=== PATIENT | female | born 1965 | race Caucasian/White ===

== ENCOUNTER 2024-11-11 12:41 | Inpatient (IN) | payer OTHER ==
--- OUTSIDE RECORDS SUMMARY | 2024-11-11 12:44 | XMS REPORT | Continuity of Care Document ---
Author Name Unknown Address [address] [place]. [address] [place] [address] [facility] Address [address] [place] [place] [address] Care Team Providers Care Sack Sorter Name Role Phone PERRYBHARGAV Nichole Attending Clinician Unavailable LAB90 Attending Clinician Unavailable SARAH ROGERS Attending Clinician Unavailable MYRANDA CURTIS Attending Clinician SHIRA Steve Attending Clinician Unavailable Myranda Curtis MD Attending Clinician [phone] Payers Payer Name Policy Type Policy Number Effective Date Expirati on Date Source [facility] 3 [id number] 2022 00:00:00 Problems Condition Name Condition Details Condition Category Status Onset Date Resolution Date Last Treatment Date Treating Clinician Comments Source Hot flashes due to menopause - Controlled Hot flashes due to menopause - Controlled Disease Active 05-02 00:00: 00 Brissa Wilson - Externa l Depression with anxiety - Not Controlled Depression with anxiety - Not Controlled Disease Active 05-02 00:00: 00 Brissa Wilson - Externa l No known active problems No known active problems Disease Brissa Wilson - Externa l Social History Social Habit Start Date Stop Date Quantity Comments Source Gender identity Carmelina Wilson - External Sexual orientation K cuco Wilson - External ASSERTION Not Brissa Wilson - External Cigarettes smoked current (pack per day) - Reported 2024-06-09 00:00:00 2024-06-09 00:00:00 Brissa Wilson - External Cigarette pack-years 2024-06-09 00:00:00 2024-06-09 00:00:00 Brissa Gauthierjennieron - External Alcoholic beverage intake 2024-06-09 00:00:00 2024-06-09 00:00:00 Lifetime non-drinker (finding) Brissa Gauthierjennieron - External History of Social function 2024-05-02 00:00:00 2024-05-02 00:00:00 Brissa Gauthiredaisy - External Sex 2022-02-06 12:32:14 2022-02-06 12:32:14 Female (finding) Brissa Gauthierdaisy - External History of tobacco use 2010-01-28 00:00:00 2020-12-31 00:00:00 Cigarette Smoker Brissa Gauthierjennieron - External Sex assigned at 1965 00:00:00 1965 00:00:00 Brissa Gauthierdaisy - External Smoking Status Start Date Stop Date Source Ex-smoker 2024-06-09 00:00:00 2024-06-09 00:00:00 Brissa Sejennieron - External Occasional tobacco smoker 2022-02-10 00:00:00 Brissa Gauthierjennieron - External Medications Ordered Medication Name Filled Medication Name Start Date Stop Date Current Medication? Ordering Clinician Indication Dosage Frequency Signature (SIG) Comments Components Source busPIRone HCl 10 MG oral Tablet 2023-08 00:00: 00 Yes [id number] 10mg Q.[id number] [id number] 3D Take 1 tablet (10 mg total) by mouth 3 times daily. Brissa Hendrix l Eszopiclone 1 MG oral Tablet 2023-08 00:00: 00 Yes [id number] Take 1-2 tab nightly as needed for sleep. Brissa Schmidta l Propranolol HCl 10 MG oral Tablet 2023-08 00:00: 00 Yes [id number] 10mg Q.[id number] [id number] 3D Take 1 tablet (10 mg total) by mouth 3 times daily as needed (anxiety). Brissa Schmidta l Eszopiclone 1 MG oral Tablet 2023-08 00:00: 00 06-09 00:00 :00 No [id number] 1mg QD Take 1 tablet (1 mg total) by mouth nightly as needed (insomnia) . Brissa nichole busPIRone HCl 10 MG oral Tablet 2023-08 0- 00:00: 00 06-09 00:00 :00 No [id number] 10mg Q.5D TAKE 1 TABLET BY MOUTH 2 TIMES DAILY Brissa nichole Eszopiclone 1 MG oral Tablet 05-02 00:00: 00 Yes [id number] 1mg QD Take 1 tablet (1 mg total) by mouth nightly as needed (insomnia) . Brissa nichole busPIRone HCl 10 MG oral Tablet 05-02 00:00: 00 Yes [id number] 10mg Q.5D Take 1 tablet (10 mg total) by mouth 2 times daily. Brissa nichole Clonidine HCl (CATAPRES) 0.1 MG oral Tablet 05-02 00:00: 00 Yes [id number] .1mg Q.5D Take 1 tablet (0.1 mg total) by mouth 2 times daily. Brissa nichole Escitalopra m Oxalate 20 MG oral Tablet 05-02 00:00: 00 Yes [id number] 20mg QD Take 1 tablet (20 mg total) by mouth daily. Brissa nichole Escitalopra m Oxalate 20 MG oral Tablet 04-24 00:00: 00 05-02 00:00 :00 No [id number] 20mg QD TAKE 1 TABLET BY MOUTH EVERY DAY Brissa nichole Clonidine HCl (CATAPRES) 0.1 MG oral Tablet 2022-08 1-14 00:00: 00 05-02 00:00 :00 No [id number] .1mg Q.5D Take 1 tablet (0.1 mg total) by mouth 2 times daily. Brissa nichole Benzonatate 200 MG oral Capsule 18 00:00: 00 05-02 00:00 :00 No [id number] 200mg Q.27649909 [id number] 3D Take 1 capsule (200 mg total) by mouth 3 times daily as needed for cough Brissa nichole Albuterol HFA 108 (90 Base) MCG/ACT IN AERS 03-09 00:00: 00 05-02 00:00 :00 No [id number] 2{puff} Q.25D Inhale 2 puffs into the lungs every 6 hours as needed for wheezing or shortness of breath Brissa nichole PAXLOVID STANDARD (30) (300/100) Therapy Pack 03-09 00:00: 00 03-15 04:59 :00 No [id number] Take two 150 mg nirmatrelv ir (pink) tablets with one 100 mg ritonavir (white) tablet by mouth two times daily for 5 days Brissa nichole Escitalopra m Oxalate 20 MG oral Tablet 01-11 00:00: 00 Yes [id number] 20mg Take 1 tablet (20 mg total) by mouth daily Brissa nichole Trazodone HCl 50 MG oral Tablet 10-07 00:00: 00 Yes [id number] TAKE 1-2 AT NIGHT NEEDED FOR SLEEP Brissa nichole methylPREDN ISolone 4 MG oral Tablet Therapy Pack 2021-08 00:00: 00 Yes [id number] 1{alex} Take 1 alex by mouth See Admin Instructio ns Use as directed Brissa nichole Meloxicam 7.5 MG oral Tablet 2021-08 00:00: 00 Yes [id number] 7.5mg Take 1 tablet (7.5 mg total) by mouth daily Brissa nichole Amoxicillin -Pot Clavulanate 875-125 MG oral Tablet 2021-08 00:00: 00 Yes [id number] 1{tbl} Take 1 tablet by mouth 2 times daily Brissa nichole Clonidine HCl 0.1 MG oral Tablet 2021-08 00:00: 00 Yes [id number] .1mg Take 1 tablet (0.1 mg total) by mouth 2 times daily Brissa nichole Cyclobenzap rine HCl 10 MG oral Tablet 2021-08 00:00: 00 03-09 00:00 :00 No [id number] 10mg Q.[id number] 3D Take 1 tablet (10 mg total) by mouth every 8 hours as needed for muscle spasms Brissa nichole Escitalopra m Oxalate 20 MG oral Tablet 04-22 00:00: 00 Yes [id number] 20mg Take 1 tablet (20 mg total) by mouth daily Brissa nichole Trazodone HCl 50 MG oral Tablet 04-17 00:00: 00 Yes [id number] TAKE 1 TABLET BY MOUTH NIGHTLY NEEDED FOR SLEEP Brissa nichole Clonidine HCl 0.1 MG oral Tablet 02-24 00:00: 00 08-03 00:00 :00 No [id number] .1mg Take 1 tablet (0.1 mg total) by mouth 2 times daily Brissa nichole Vital Signs Vital Name Observation Time Observation Value Comments S ource Diastolic blood pressure 2024-06-09 13:52:00 78 mm[Hg] Brissa Martinezo ld - External Systolic blood pressure 2024-06-09 13:52:00 130 mm[Hg] Brissajohnathon Martinezo ld - External Heart rate 2024-06-09 13:44:00 72 /min Kelse y Seybron - External Body temperature 2024-06-09 13:44:00 36.61 Gladys Brissa Gauthierdaisy - External Respiratory rate 2024-06-09 13:44:00 15 /min Brissa Sedaisy - External Body height 2024-06-09 13:44:00 162.6 cm Carmelina anant Gauthierybron - External Body weight 2024-06-09 13:44:00 78.926 kg Carmelina anant Gauthierybold - External BMI 2024-06-09 13:44:00 29.87 kg/m2 Carmelina anant Seybold - External Systolic blood pressure 2024-05-02 14:04:00 138 mm[Hg] Brissajohnathon Martinezo ld - External Diastolic blood pressure 2024-05-02 14:04:00 78 mm[Hg] Brissajohnathon Martinezo ld - External Heart rate 2024-05-02 14:04:00 86 /min Kelse y Seybold - External Body temperature 2024-05-02 14:04:00 36.06 Gladys Brissa Seybold - External Respiratory rate 2024-05-02 14:04:00 14 /min Brissa Seybold - External Body height 2024-05-02 14:04:00 162.6 cm Carmelina ey Seybold - External Body weight 2024-05-02 14:04:00 80.74 kg Carmelina ey Seybold - External BMI 2024-05-02 14:04:00 30.55 kg/m2 Carmelina ey Seybold - External Systolic blood pressure 2022-10-08 21:05:00 130 mm[Hg] Brissa Seybo ld - External Diastolic blood pressure 2022-10-08 21:05:00 64 mm[Hg] Brissa Seybo ld - External Heart rate 2022-10-08 21:05:00 78 /min Kelse y Seybold - External Body temperature 2022-10-08 21:05:00 37.28 Gladys Brissa Seybold - External Respiratory rate 2022-10-08 21:05:00 15 /min Brissa Seybold - External Body height 2022-10-08 21:05:00 162.6 cm Carmelina ey Seybold - External Body weight 2022-10-08 21:05:00 96.163 kg Carmelina ey Seybold - External BMI 2022-10-08 21:05:00 36.39 kg/m2 Carmelina ey Seybold - External Systolic blood pressure 2022-08-03 15:16:00 125 mm[Hg] Brissa Seybo ld - External Diastolic blood pressure 2022-08-03 15:16:00 78 mm[Hg] Brissa Seybo ld - External Heart rate 2022-08-03 15:16:00 71 /min Kelse y Seybold - External Body temperature 2022-08-03 15:16:00 36.56 Gladys Brissa Seybold - External Respiratory rate 2022-08-03 15:16:00 14 /min Brissa Seybold - External Body height 2022-08-03 15:16:00 162.6 cm Carmelina ey Seybold - External Body weight 2022-08-03 15:16:00 90.357 kg Carmelina ey Seybold - External BMI 2022-08-03 15:16:00 34.19 kg/m2 Carmelina ny Seybold - External Oxygen saturation in Arterial blood by Pulse oximetry 2022-08-03 15:16:00 95 /min Brissa Godoy ld - External Encounters Start Date/Time End Date/Time Encounter Type Admission Type Attending [facility] Care Department Encounter ID Source 2024-08-28 00:00:00 2024-08-28 00:00:00 Outpatient NEFTALY BHARGAV BRADLEY [id number] Brissa jennieron 2024-07-17 08:30:00 2024-07-17 08:30:00 Outpatient NEFTALY BHARGAV BRADLEY [id number] Brissa daisy 2024-07-01 00:00:00 2024-07-01 00:00:00 Outpatient BHARGAV HIGGINBOTHAM [id number] Brissa Steve 2024-06-09 09:45:00 2024-06-09 09:45:00 Outpatient LAB90 BRISSA BRADLEY [id number] Brissa Steve 2024-06-09 09:00:00 2024-06-09 09:00:00 Outpatient NEFTALY BHARGAV BRADLEY [id number] Brissa Steve 2024-06-09 00:00:00 2024-06-09 00:00:00 Outpatient NEFTALY BHARGAV BRADLEY [id number] Brissa Steve 2024-06-07 00:00:00 2024-06-07 00:00:00 Outpatient BHARGAV HIGGINBOTHAM [id number] Brissa Steve 2024-05-24 00:00:00 2024-05-24 00:00:00 Outpatient BHARGAV HIGGINBOTHAM [id number] Brissa jennieron 2024-05-02 09:00:00 2024-05-02 09:00:00 Outpatient BHARGAV HIGGINBOTHAM [id number] Brissa ybron 2024-05-02 00:00:00 2024-05-02 00:00:00 Outpatient BHARGAV HIGGINBOTHAM [id number] Brissa jennieron 2024-04-20 00:00:2024-04-20 00:00:00 Outpatient HUNDL BHARGAV [facility] [id number] [facility] 2024-03-27 00:00:00 2024-03-27 00:00:00 Outpatient HUNDL BHARGAV [facility]SA [facility] [id number] [facility] 2023-10-29 00:00:00 2023-10-29 00:00:00 Outpatient HUNDL [facility]AV [facility] [id number] [facility] 2023-10-06 00:00:00 2023-10-06 00:00:00 Outpatient HUNDL [facility]AV [facility] [id number] [facility] 2023-10-05 00:00:00 2023-10-05 00:00:00 Outpatient PREZAS, SARAH [facility] [id number] [facility] 2023-07-06 00:00:00 2023-07-06 00:00:00 [id number]23-[facility]-09 10:00:00 2023-03-09 10:00:00 Outpatient SHIRA BARAJAS [id number] [facility] 2023-02-22 00:00:00 2023-02-22 00:00:00 [facility] CURT[facility] [id number] [facility] 2023-01-11 00:00:00 2023-01-11 00:00:00 Outpatient MYRANDA CURTIS [id number] [facility] 2023-01-11 00:00:00 2023-01-11 00:00:00 Outpatient PREZASSARAH [id number] Brissa Seybold 2023-01-11 00:00:00 2023-01-11 00:00:00 Outpatient PRESARAH MEYER [id number] Brissa Seybold 2023-01-07 00:00:00 2023-01-07 00:00:00 Outpatient MY[facility]ANDA CURTIS [id number] [facility] 2023-01-07 00:00:00 2023-01-07 00:00:00 Outpatient MYRANDA CURTIS BRISSA BRADLEY [id number] Br[facility] 2022-12-18 00:00:00 2022-12-18 00:00:00 Outpatient MYRANDA CURTIS BRISSA BRADLEY [id number] Brissa [facility] 2022-11-19 00:00:00 2022-11-19 00:00:00 Outpatient EVER MYRANDA BRADLEY [id number] Brissa [facility] 2022-10-08 16:15:00 2022-10-08 16:15:00 Outpatient VICTOR MANUELEmily BRISSA BRADLEY [id number] Brissa [facility] 2022-10-08 15:30:00 2022-10-08 15:30:00 [id number] [facility]:00 2022-10-08 00:00:00 Outpatient BHARGAV HIGGINBOTHAM [id number] Brissa [facility] 2022-10-07 00:00:00 2022-10-07 00:00:00 Outpatient EVER MYRANDA BRADLEY [id number] Brissa [facility] 2022-10-05 00:00:00 2022-10-05 00:00:00 Outpatient NEFTALY BHARGAV BRADLEY [id number] [facility] 2022-09-17 00:00:00 2022-09-17 00:00:00 Outpatient MYRANDA CURTIS [id number] Br[facility] 2022-08-28 00:00:00 2022-08-28 00:00:00 Outpatient SARAH ROGERS [id number] Brissa [facility] 2022-08-27 00:00:00 2022-08-27 00:00:00 Outpatient MYRANDA CURTIS [id number] Brissa [facility] 2022-08-03 09:15:00 2022-08-03 09:15:00 Outpatient MYRANDA CURTIS [id number] Brissa [facility] 2022-04-21 08:30:00 2022-04-21 08:45:00 Office Visit Myranda Curtis [place] [id number] Brissa Wilson 2022-03-24 08:45:00 2022-03-24 09:00:00 Office Visit Myranda Curtis [id number] Brissa Wilson 2022-03-12 14:45:00 2022-03-12 14:45:00 Outpatient LAB90 BRISSA BRISSA [id number] Brissa Wilson 2022-02-24 08:45:00 2022-02-24 09:00:00 Office Visit Myranda Curtis [place] [id number] Brissa Wilson 2022-02-16 00:00:00 2022-02-16 00:00:00 Outpatient MYRANDA CURTIS BRISSA [id number] Brissa Wlison 2022-02-11 00:00:00 2022-02-11 00:00:00 Outpatient MYRANDA CURTIS BRISSA [id number] Brissa Wilson 2022-02-10 11:45:00 2022-02-10 11:45:00 Outpatient LAB90 BRISSA BRADLEY [id number] Brissa Wilson 2022-02-10 11:00:00 2022-02-10 11:30:00 Office Visit Myranda Curtis [place] [id number] Brissa Seron Notes Date/Time Note Provider Source 2024-06-09 08:47:48 Chief Complaint Patient presents with Physical Patient is fasting. Follow-up Follow up on anxiety/depression Nithya Pretty MA II [facility] 2024-05-02 09:08:41 Chief Complaint Patient presents with REFILLS-NURSE/MD Refill on Clonidine Fatigue Would like to discuss getting something to help her sleep. She states that her anxiety has increased and has taken Trazodone and it does not help. Has had some family issues as well. Nithya Pretty MA II [facility]
--- NOTE | 2024-11-11 13:42 | RAD REPORT ---
Procedure: Chest Single View HISTORY: Cough COMPARISON: none FINDINGS: 8 cm opacity right lung with elevation right hemidiaphragm. Left lung appears grossly clear. No significant pleural effusion noted. The heart is normal size. IMPRESSION: Right lung opacity may represent pneumonia or mass.
[2024-11-11 13:55] LABS: Absolute Lymphocytes (CBC) 0.7 K/uL (0.7-4.9); Absolute Monocytes 0.7 K/uL (0.1-1.3); Basophils % 0.8 % (0-1.3); Eosinophils % 0.1 % (0-4.4); Hematocrit 41.8 % (36.0-45.0); Hemoglobin 14.4 g/dL (12.0-15.0); Lymphocytes % 10.9 % (15.3-44.8); MCHC 34.5 g/dL (32.0-36.0); MPV 8.8 fL (7.6-11.3); Monocytes % 10.2 % (3.3-12.3); Nucleated Red Blood Cells % 0.1 % (0-0); Platelets 218 thou/uL (152-406); RBC Red Blood Cell Count 4.97 M/uL (3.86-4.86); Red Cell Distribution Width 14.7 % (12.1-15.2)
[2024-11-11] MEDS ORDERED: IPRATROPIUM BROM 0.5MG/2.5ML ONE (13:55)
[2024-11-11] MEDS ORDERED: ALBUTEROL 2.5 MG/3 ML NEB SOL ONE (13:55)
[2024-11-11 14:14] LABS: Comment N; Influenza A Ag Positive; Influenza B Ag Negative; SARS-CoV-2 Antigen Rapid Res Negative (Negative)
[2024-11-11 14:23] LABS: Albumin 3.4 g/dL (3.4-5.0); Albumin/Globulin Ratio 0.8 (1.1-1.8); Anion Gap 11.2 mEq/L (5.0-15.0); Bilirubin Direct 0.2 mg/dL (0-0.2); Bilirubin Indirect, Calculated 0.4 mg/dL (0.2-0.8); Bilirubin Total 0.6 mg/dL (0.2-1.0); Globulin 4.2 g/dL (2.3-3.5); Magnesium 1.9 mg/dL (1.6-2.4); Potassium 3.2 mEq/L (3.5-5.1); Protein, Total 7.6 g/dL (6.4-8.2); Troponin High Sensitivity 18.3 pg/mL (<58.9)
--- NOTE | 2024-11-11 14:44 | RAD REPORT ---
EXAM:Thorax Wo Con CLINICAL INDICATION: Shortness of breath TECHNIQUE: CT chest performed.. Axial, sagittal and coronal reconstructions were obtained. One or mor e of the following dose reduction techniques were used: Automated exposure control, adjustment of the mA and/or kV according to the patient size, and/or iterative reconstruction. Unless otherwise specified, incidental findings do not require dedicated imaging follow-up. [id number]. COMPARISON: November 11, 2024 chest x-ray FINDINGS: 8 cm right upper lobe mass extends to an infiltrates the mediastinum. There are markedly enlarged med iastinal lymph nodes. Right hilar lymphadenopathy is present. The mass likely disrupts the right phrenic nerve. Elevation of the right hemidiaphragm is present. Additional right lung opacities likely post obstructive pneumonitis. The left lung is clear. Minimal right pleural effusion. Minimal ascites. Cholelithiasis. 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 Mediastinal and right hilar lymphadenopathy The mass would be amenable to bronchoscopy with tissue sampling.
--- NOTE | 2024-11-11 15:21 | ER ---
Nurse's Notes [facility] Name: Myranda Abarca Age: 59 yrs Sex: Female : 1965 Arrival Date: 11/11/2024 Time: 12:41 Bed 20 Private MD: Diagnosis: Influenza, hypoxia, pneumonia, new pulmonary mass Presentation: 11/11 12:54 Chief complaint: Patient states: SOB, cough, decreased appetite, and fatigue since aa5 Wednesday. 12:54 Coronavirus screen: cough unrelated to allergies. Ebola Screen: Patient denies travel aa5 to an Ebola-affected area in the 21 days before illness onset. Initial Sepsis Screen: Does the patient meet any 2 criteria? RR > 20 per min. HR > 90 bpm. Yes Does the patient have a suspected source of infection? No. Patient's initial sepsis screen is negative. Risk Assessment: Do you want to hurt yourself or someone else? Patient reports no desire to harm self or others. Onset of symptoms was October 2024. 12:54 Acuity: HUNG 3 aa5 12:54 Method Of Arrival: Ambulatory aa5 Triage Assessment: 13:54 General: Appears in no apparent distress. Behavior is calm, cooperative. Respiratory: kj2 Reports shortness of breath at rest Onset: The symptoms/episode began/occurred since Wednesday, the patient has moderate shortness of breath. Historical: - Allergies: 12:54 PENICILLINS; aa5 - Home Meds: 12:54 clonidine HCl 0.1 mg Oral tablet 2 times per day [Active]; escitalopram oxalate 20 mg aa5 oral tablet daily [Active]; - PMHx: 12:54 Depressive disorder; aa5 - PSHx: 12:54 None; aa5 - Immunization history:: Adult Immunizations unknown. - Infectious Disease History:: Denies. - Social history:: Smoking status: Reported history of juuling and/or vaping. Screenin:53 [facility] ED Fall Risk Assessment (Adult) History of falling in the last 3 months, kj2 including since admission No falls in past 3 months (0 pts) Confusion or Disorientation No (0 pts) Intoxicated or Sedated No (0 pts) Impaired Gait No (0 pts) Mobility Assist Device Used No (0 pt) Altered Elimination No (0 pt) Score/Fall Risk Level 0 - 2 = Low Risk Maintained a safe environment, Hourly rounding (assess needs \T\ fall precautionary measures) done. Abuse screen: Denies threats or abuse. Denies injuries from another. Nutritional screening: No deficits noted. Tuberculosis screening: No symptoms or risk factors identified. Assessment: 13:52 General: Appears in no apparent distress. Behavior is calm, cooperative. Pain: Denies kj2 pain. Neuro: Level of Consciousness is awake, alert, obeys commands, Oriented to person, place, time, situation. Cardiovascular: Patient's skin is warm and dry. Respiratory: Airway is patent Respiratory effort is unlabored, Breath sounds with rales bilaterally. GI: No signs and/or symptoms were reported involving the gastrointestinal system. : No signs and/or symptoms were reported regarding the genitourinary system. 15:00 Reassessment: Patient appears in no apparent distress at this time. Patient and/or kj2 family updated on plan of care and expected duration. Pain level reassessed. Patient is alert, oriented x 3, equal unlabored respirations, skin warm/dry/pink. 15:19 Reassessment: patient placed on O2 3 liters, O2 sats raised to 95%. kj2 18:01 Cardiovascular: Rhythm is sinus rhythm. kj2 Vital Signs: 12:54 BP 117 / 60; Pulse 93; Resp 24 S; Temp 99.2(O); Pulse Ox 95% on R/A; Weight 74.39 kg aa5 (R); Height 5 ft. 4 in. (R); 15:00 BP 120 / 103; Pulse 98; Resp 20; Pulse Ox 91% on R/A; kj2 16:00 BP 121 / 92; Pulse 92; Resp 20; Pulse Ox 96% 3 lpm ; kj2 17:50 BP 116 / 65; Pulse 82; Resp 20; Temp 98; Pulse Ox 96% 3 lpm ; kj2 12:54 Body Mass Index 28.15 (74.39 kg, 162.56 cm) aa5 ED Course: 12:44 Patient arrived in ED. sj2 12:50 Nasima Plaza MD is Attending Physician. sp3 12:54 Arm band placed on. aa5 12:57 Triage completed. aa5 13:24 XRAY Chest (1 view) In Process Unspecified. EDMS 13:29 Kenya Crandall, VIJAY is Primary Nurse. kj2 13:45 Inserted saline lock: 20 gauge in left antecubital area, using aseptic technique. Blood kj2 collected. Flushed with 10 mL NS. 13:52 Group A Streptococcus Rapid Sent. kj2 13:52 COVID-19 Ag + Flu A+B Ag Sent. kj2 13:54 Patient has correct armband on for positive identification. Bed in low position. Call kj2 light in reach. Adult w/ patient. Provided Education on: call light. 13:56 No provider procedures requiring assistance completed. kj2 14:32 CT Chest Wo Con In Process Unspecified. EDMS 15:21 Uli To MD is Hospitalizing Provider. sp3 19:20 Patient admitted, IV remains in place. kj2 Administered Medications: 14:04 Drug: DuoNeb Nebulize (3:1) (2.5 mg - 0.5 mg) 3 ml Nebulizer once Route: Nebulizer; kj2 15:23 Follow up: Response: No adverse reaction kj2 15:36 Drug: Cefepime IVPB 1 grams IVPB at 200 ml/hr once over 30 mins; (mix in NS 100 mL) kj2 Route: IVPB; Rate: 200 ml/hr; Infused Over: 30 mins; Site: left antecubital; 17:58 Follow up: IV Status: Completed infusion; IV Intake: 100ml kj2 Medication: 13:56 VIS not applicable for this client. kj2 Intake: 17:58 IV: 100ml; Total: 100ml. kj2 Outcome: 15:21 Decision to Hospitalize by Provider. sp3 19:19 Admitted to Med/surg accompanied by tech, via wheelchair, room 223, kj2 19:19 Condition: stable 19:19 Instructed on the need for admit, 19:21 Patient left the ED. kj2 Signatures: Dispatcher [employer] EDMS Romelia Joseph RN RN aa5 Nasima Plaza MD MD sp3 Kenya Crandall RN RN kj2 Sofia Hargrove sj2 Corrections: (The following items were deleted from the chart) 15:19 15:15 BP 120 / 103; Pulse 98bpm; Resp 20bpm; Pulse Ox 91% RA; kj2 kj2
--- NOTE | 2024-11-11 15:22 | EDPHYS ---
Physician Documentation [facility] Name: Myranda Abarca Age: 59 yrs Sex: Female : 1965 Arrival Date: 11/11/2024 Time: 12:41 Bed 20 Private MD: ED Physician Nasima Plaza HPI: 11/11 13:05 This 59 yrs old Female presents to ER via Ambulatory with complaints of Breathing sp3 Difficulty. 13:37 59-year-old female history of depression and anxiety now presents to the ED with chief sp3 complaint cough, congestion shortness of breath and wheezing for the last 3 to 4 days. Patient thinks she has a respiratory infection. She denies any known sick contacts, travel history, chest pain, back pain, abdominal pain, nausea, vomit, diarrhea, fever or prolonged immobilization, prior history of DVT or PE or any other signs or symptoms on ROS at this time.. Historical: - Allergies: 12:54 PENICILLINS; aa5 - Home Meds: 12:54 clonidine HCl 0.1 mg Oral tablet 2 times per day [Active]; escitalopram oxalate 20 mg aa5 oral tablet daily [Active]; - PMHx: 12:54 Depressive disorder; aa5 - PSHx: 12:54 None; aa5 - Immunization history:: Adult Immunizations unknown. - Infectious Disease History:: Denies. - Social history:: Smoking status: Reported history of juuling and/or vaping. ROS: 13:37 Constitutional: Negative for fever, chills, and weight loss, Eyes: Negative for injury, sp3 pain, redness, and discharge, ENT: Negative for injury, pain, and discharge, Neck: Negative for injury, pain, and swelling, Cardiovascular: Negative for chest pain, palpitations, and edema, Abdomen/GI: Negative for abdominal pain, nausea, vomiting, diarrhea, and constipation, Back: Negative for injury and pain, MS/Extremity: Negative for injury and deformity, Skin: Negative for injury, rash, and discoloration, Neuro: Negative for headache, weakness, numbness, tingling, and seizure, Psych: Negative for depression, anxiety, suicide ideation, homicidal ideation, and hallucinations, Allergy/Immunology: Negative for hives, rash, and allergies, Endocrine: Negative for neck swelling, polydipsia, polyuria, polyphagia, and marked weight changes, Hematologic/Lymphatic: Negative for swollen nodes, abnormal bleeding, and unusual bruising, 13:37 All other systems are negative, Exam: 13:37 Constitutional: This is a well developed, well nourished patient who is awake, alert, sp3 and in no acute distress. Head/Face: Normocephalic, atraumatic. Eyes: Pupils equal round and reactive to light, extra-ocular motions intact. Lids and lashes normal. Conjunctiva and sclera are non-icteric and not injected. Cornea within normal limits. Periorbital areas with no swelling, redness, or edema. ENT: Nares patent. No nasal discharge, no septal abnormalities noted. External auditory canals are clear. Oropharynx with no redness, swelling, or masses, exudates, or evidence of obstruction, uvula midline. Mucous membranes moist. Neck: Trachea midline, no thyromegaly or masses palpated, and no cervical lymphadenopathy. Supple, full range of motion without nuchal rigidity, or vertebral point tenderness. No Meningismus. Chest/axilla: Normal chest wall appearance and motion. Nontender with no deformity. No lesions are appreciated. Cardiovascular: Regular rate and rhythm with a normal S1 and S2. No gallops, murmurs, or rubs. Normal PMI, no JVD. No pulse deficits. Abdomen/GI: Soft, non-tender, with normal bowel sounds. No distension or tympany. No guarding or rebound. No evidence of tenderness throughout. Back: No spinal tenderness. No costovertebral tenderness. Full range of motion. Skin: Warm, dry with normal turgor. Normal color with no rashes, no lesions, and no evidence of cellulitis. MS/ Extremity: Pulses equal, no cyanosis. Neurovascular intact. Full, normal range of motion. Neuro: Awake and alert, GCS 15, oriented to person, place, time, and situation. Cranial nerves II-XII grossly intact. Motor strength 5/5 in all extremities. Sensory grossly intact. Cerebellar exam normal. Normal gait. Psych: Awake, alert, with orientation to person, place and time. Behavior, mood, and affect are within normal limits. Vital Signs: 12:54 BP 117 / 60; Pulse 93; Resp 24 S; Temp 99.2(O); Pulse Ox 95% on R/A; Weight 74.39 kg aa5 (R); Height 5 ft. 4 in. (R); 15:00 BP 120 / 103; Pulse 98; Resp 20; Pulse Ox 91% on R/A; kj2 16:00 BP 121 / 92; Pulse 92; Resp 20; Pulse Ox 96% 3 lpm ; kj2 17:50 BP 116 / 65; Pulse 82; Resp 20; Temp 98; Pulse Ox 96% 3 lpm ; kj2 12:54 Body Mass Index 28.15 (74.39 kg, 162.56 cm) aa5 MDM: 13:03 Medical Screening Exam initiated sp3 13:38 Data reviewed: vital signs, nurses notes, old medical records, lab test result(s), EKG, sp3 radiologic studies. ED course: 59-year-old female with PMH above now with respiratory symptoms. Official diagnosis includes viral illness, COVID-19, influenza, strep pharyngitis, bronchitis, pneumonia, CHF, ACS, among others. I am not highly suspicious of sepsis, shock, aortic/vascular pathology, any other critical illness. Workup will include chest x-ray, EKG, general labs, swabs and treatment with nebulizer to start. Disposition pending workup and patient course.. 15:20 ED course: Patient has large 8 cm mass extending into the mediastinum and phrenic nerve sp3 on the right side. Extensive pneumonia and inflammatory changes also present. Patient is flu positive however I still gave cefepime and patient is on supplemental oxygen. Mass is amenable to [facility] scopic biopsy. Will admit to internal medicine and pulmonary consultation.. 11/11 13:06 Order name: Basic Metabolic Panel; Complete Time: 15:11/11 13:06 Order name: CBC with Diff; Complete Time: 15:02 3 11/11 13:06 Order name: LFT's; Complete Time: 15:02 3 11/11 13:06 Order name: Magnesium; Complete Time: 15:02 sp3 11/11 13:06 Order name: NT PRO-BNP; Complete Time: 15:02 sp3 11/11 13:06 Order name: Troponin HS; Complete Time: 15:02 3 11/11 13:06 Order name: COVID-19 Ag + Flu A+B Ag; Complete Time: 15: 3 11/11 13:06 Order name: Group A Streptococcus Rapid; Complete Time: 15:02 sp3 11/11 14:18 Order name: Throat Culture EDMS 11/11 17:38 Order name: CBC with Automated Diff EDMS 11/11 17:38 Order name: CBC with Automated Diff EDMS 11/11 17:38 Order name: Comprehensive Metabolic Panel EDMS 11/11 17:38 Order name: Comprehensive Metabolic Panel EDMS 11/11 17:38 Order name: Lipid Profile EDMS 11/11 17:38 Order name: Lipid Profile EDMS 11/11 17:38 Order name: Magnesium EDMS 11/11 17:38 Order name: Magnesium EDMS 11/11 17:38 Order name: NT PRO-BNP EDMS 11/11 17:38 Order name: NT PRO-BNP EDMS 11/11 17:38 Order name: Troponin High Sensitivity EDMS 11/11 17:38 Order name: Troponin High Sensitivity EDMS 11/11 17:38 Order name: Troponin High Sensitivity EDMS 11/11 17:38 Order name: Troponin High Sensitivity EDMS 11/11 13:06 Order name: XRAY Chest (1 view); Complete Time: 13:43 sp3 11/11 13:44 Order name: CT Chest Wo Con; Complete Time: 15:02 sp3 11/11 17:38 Order name: CONS Physician Consult EDMN 11/11 13:06 Order name: Cardiac monitoring; Complete Time: 15:13 sp3 11/11 13:06 Order name: EKG - Nurse/Tech; Complete Time: 15:59 sp3 11/11 13:06 Order name: IV Saline Lock; Complete Time: 13:52 sp3 11/11 13:06 Order name: Labs collected and sent; Complete Time: 13:52 sp3 11/11 13:06 Order name: O2 Per Protocol; Complete Time: 15:13 sp3 11/11 13:06 Order name: O2 Sat Monitoring; Complete Time: 15:13 sp3 Administered Medications: 14:04 Drug: DuoNeb Nebulize (3:1) (2.5 mg - 0.5 mg) 3 ml Nebulizer once Route: Nebulizer; kj2 15:23 Follow up: Response: No adverse reaction kj2 15:36 Drug: Cefepime IVPB 1 grams IVPB at 200 ml/hr once over 30 mins; (mix in NS 100 mL) kj2 Route: IVPB; Rate: 200 ml/hr; Infused Over: 30 mins; Site: left antecubital; 17:58 Follow up: IV Status: Completed infusion; IV Intake: 100ml kj2 Disposition Summary: 11/11/24 15:21 Hospitalization Ordered Notes: Hospitalization Status: Inpatient Admission sp3 Provider: Uli To Location: Telemetry/MedSurg (Inpatient) sp3 Condition: Stable sp3 Problem: new sp3 Symptoms: have worsened sp3 Bed/Room Type: Standard sp3 Room Assignment: 223(11/11/24 18:17) aa5 Diagnosis - Influenza, hypoxia, pneumonia, new pulmonary mass sp3 Forms: - Medication Reconciliation Form sp3 - SBAR form sp3 - Leadership Thank You Letter sp3 Signatures: Dispatcher [employer] EDMS Emilia Knapp Audri RN RN aa5 Nasima Plaza MD MD sp3 Kenya Crandall RN RN kj2 Corrections: (The following items were deleted from the chart) 13:06 13:06 BASIC METABOLIC PANEL+C.LAB.BRZ ordered. EDMS EDMS 13:06 13:06 CBC+H.LAB.BRZ ordered. EDMS EDMS 13:06 13:06 HEPATIC FUNCTION+C.LAB.BRZ ordered. EDMS EDMS 13:06 13:06 MAGNESIUM+C.LAB.BRZ ordered. EDMS EDMS 13:06 13:06 PROBNP+C.LAB.BRZ ordered. EDMS EDMS 13:06 13:06 Troponin High Sensitivity+C.LAB.BRZ ordered. EDMS EDMS 13:06 13:06 COVID-19 Ag + Flu A+B Ag+I.LAB.BRZ ordered. EDMS EDMS 13:06 13:06 Group A Streptococcus Rapid Sc+I.LAB.BRZ ordered. EDMS EDMS 13:06 13:06 Chest Single View+RAD.RAD.BRZ ordered. EDMS EDMS 13:45 13:45 Thorax Wo Con+CT.RAD.BRZ ordered. EDMS EDMS 17:43 15:21 sp3 sp 18:17 17:43 214 sp aa5
[2024-11-11] MEDS ORDERED: CEFEPIME 1 GM/VIAL ONE (15:30)
[2024-11-11] MEDS ORDERED: NA CHLORIDE 0.9% 100 ML ONE (15:30)
[2024-11-11] MEDS ORDERED: ONDANSETRON 4 MG/2 ML VIAL IV PRN (17:31)
[2024-11-11] MEDS: Levofloxacin 750mg IV 750 MG/150 ML BAG IV SCH ×2 (18:00→23:00)
[2024-11-11] MEDS: METHYLPREDNISOLONE 125 MG INJ IV SCH (18:00)
[2024-11-11] MEDS: NA CHLORIDE 0.9% 1,000 ML IV SCH (18:00)
[2024-11-11 19:15] VITALS: BMI 28.1
[2024-11-11] MEDS: IPRATROPIUM BROM 0.5MG/2.5ML NEB SCH (19:52)
[2024-11-11] MEDS: ACETAMINOPHEN 500 MG TAB PO PRN (22:11)
[2024-11-12 06:35] LABS: Absolute Lymphocytes (CBC) 0.6 K/uL (0.7-4.9); Absolute Monocytes 0.2 K/uL (0.1-1.3); Absolute Neutrophil 2.9 K/uL (1.8-8.0); Basophils % 0.3 % (0-1.3); Hematocrit 41.9 % (36.0-45.0); Hemoglobin 14.3 g/dL (12.0-15.0); Lymphocytes % 16.9 % (15.3-44.8); MCH 28.8 pg (27.0-35.0); MCHC 34.1 g/dL (32.0-36.0); MCV 84.3 fL (80-100); MPV 8.8 fL (7.6-11.3); Monocytes % 4.2 % (3.3-12.3); Neutrophils % 78.6 % (41.7-73.7); Nucleated Red Blood Cells % 0.1 % (0-0); Platelets 219 thou/uL (152-406); RBC Red Blood Cell Count 4.97 M/uL (3.86-4.86); Red Cell Distribution Width 14.9 % (12.1-15.2)
[2024-11-12 06:51] LABS: Albumin/Globulin Ratio 0.7 (1.1-1.8); Anion Gap 8.9 mEq/L (5.0-15.0); Bilirubin Total 0.6 mg/dL (0.2-1.0); Globulin 4.3 g/dL (2.3-3.5); Magnesium 2.1 mg/dL (1.6-2.4); Potassium 3.9 mEq/L (3.5-5.1); Protein, Total 7.3 g/dL (6.4-8.2); Troponin High Sensitivity 26.3 pg/mL (<58.9)
[2024-11-12] MEDS: ENOXAPARIN 40 MG/0.4 ML SQ SCH (09:07)
[2024-11-12] MEDS: ALPRAZOLAM 0.5 MG TABLET PO PRN (22:46)
[2024-11-12] MEDS: GUAIFENESIN/CODEINE 5ML UCUP PO PRN (23:56)
[2024-11-13 05:49] LABS: Absolute Monocytes 0.5 K/uL (0.1-1.3); Absolute Neutrophil 5.4 K/uL (1.8-8.0); Basophils % 0.2 % (0-1.3); Hematocrit 39.7 % (36.0-45.0); Hemoglobin 13.6 g/dL (12.0-15.0); Lymphocytes % 14.1 % (15.3-44.8); MCH 28.8 pg (27.0-35.0); MCHC 34.2 g/dL (32.0-36.0); MCV 84.1 fL (80-100); MPV 8.8 fL (7.6-11.3); Neutrophils % 78.7 % (41.7-73.7); Nucleated Red Blood Cells % 0.1 % (0-0); Platelets 239 thou/uL (152-406); RBC Red Blood Cell Count 4.71 M/uL (3.86-4.86); Red Cell Distribution Width 14.6 % (12.1-15.2)
[2024-11-13 06:25] LABS: Albumin 2.8 g/dL (3.4-5.0); Albumin/Globulin Ratio 0.7 (1.1-1.8); Anion Gap 7.2 mEq/L (5.0-15.0); Bilirubin Total 0.4 mg/dL (0.2-1.0); C-Reactive Protein 17.5 mg/L (<3.00); Magnesium 2.1 mg/dL (1.6-2.4); Potassium 3.2 mEq/L (3.5-5.1); Protein, Total 6.8 g/dL (6.4-8.2)
--- NOTE | 2024-11-13 06:48 | P.HP ---
Certification for Inpatient Patient admitted to: Inpatient With expected LOS: >2 Midnights Patient will require the following post-hospital care: None Practitioner: I am a practitioner with admitting privileges, knowledge of patient current condition, hospital course, and medical plan of care. Services: Services provided to patient in accordance with Admission requirements found in Title 42 Section 412.3 of the Code of Federal Regulations Patient History Date of Service: 11/11/24 Reason for admission: Shortness of breath History of Present Illness: Patient is a 59-year-old female who came to the hospital with shortness of breath. Patient was found to have a pulmonary mass along with acute COPD exacerbation. Patient has a history of tobacco use but quit many years ago.Patient states she has been having difficulty breathing since when stain is being progressively worse. She has also noticed over the last month she has had it more difficult to breathe. She decided come into the emergency room for further evaluation. In the ER, imaging studies revealed pulmonary mass and clinically patient appears to have a COPD exacerbation. Patient will continue with nebs, steroids, antibiotics. Allergies Penicillins Allergy (Verified 11/11/24 23:09) Unknown Home Medications: RX: Escitalopram [Lexapro*] DAILY 11/11/24 cloNIDine HCL [Clonidine HCl] BID 11/11/24 - Past Medical/Surgical History Has patient received pneumonia vaccine in the past: No Diabetic: No -: Depression -: Hot flashes Past Surgical History: Patient denies surgical history - Family History Father Family History: Reviewed- Non-Contributory - Social History Smoking Status: Former smoker Alcohol use: No CD- Drugs: No Caffeine use: No Place of Residence: Home Review of Systems 10-point ROS is otherwise unremarkable Physical Examination - Vital Signs Temperature: 98.4 F Blood Pressure: 133/64 Pulse: 86 Respirations: 16 Pulse Ox (%): 95 - Physical Exam General: Alert, In no apparent distress, Oriented x3 HEENT: Atraumatic, PERRLA, Mucous membr. moist/pink, EOMI, Sclerae nonicteric Neck: Supple, 2+ carotid pulse no bruit, No LAD, Without JVD or thyroid abnormality Respiratory: Diminished, Expiratory wheezes Cardiovascular: Regular rate/rhythm, Normal S1 S2, No murmurs Gastrointestinal: Normal bowel sounds, Soft and benign, Non-distended, No tenderness Musculoskeletal: No clubbing, No swelling, No tenderness Integumentary: No rashes Neurological: Normal gait, Normal speech, Normal strength at 5/5 x4 extr, Normal tone, Sensation intact, Cranial nerves 3-12 intact, Normal affect Lymphatics: No axilla or inguinal lymphadenopathy Assessment & Plan - Problems (Diagnosis) (1) COPD with acute exacerbation Current Visit: Yes Status: Acute (2) Lung mass Current Visit: Yes Status: Acute - Plan -nebs, steroids, and antibiotics -O2 per protocol. -outpatient pulmonary function testing -repeat chest x-ray -pulmonary consultation pending; NPO Wednesday for bronchoscopy Discharge Plan: Home Plan to discharge in: Greater than 2 days - Advance Directives Does patient have a Living Will: No Does patient have a Durable POA for Healthcare: No - Code Status/Comfort Care Code Status Assessed: Yes Code Status: Full Code Critical Care: No Time Spent Managing PTS Care (In Minutes): 45
--- NOTE | 2024-11-13 06:54 | P.PN ---
Subjective Date of Service: 11/12/24 patient's respiratory status is somewhat better. Still tachypneic. Awaiting pulmonary consultation for possible bronch in the morning. Review of Systems 10-point ROS is otherwise unremarkable Physical Examination - Vital Signs Temperature: 98.4 F Blood Pressure: 133/64 Pulse: 86 Respirations: 16 Pulse Ox (%): 95 - Physical Exam General: Alert, In no apparent distress, Oriented x3 HEENT: Atraumatic, PERRLA, EOMI Respiratory: Diminished, Expiratory wheezes Cardiovascular: Regular rate/rhythm, Normal S1 S2, No murmurs Gastrointestinal: Normal bowel sounds, Soft and benign, Non-distended, No tenderness Musculoskeletal: No clubbing, No swelling, No tenderness Neurological: Sensation intact, Cranial nerves 3-12 intact - Studies Medications List Reviewed: Yes Assessment & Plan - Problems (Diagnosis) (1) COPD with acute exacerbation Current Visit: Yes Status: Acute (2) Lung mass Current Visit: Yes Status: Acute - Plan Continue with plan of care as mentioned below: -nebs, steroids, and antibiotics -O2 per protocol. -outpatient pulmonary function testing -repeat chest x-ray -pulmonary consultation pending; NPO Wednesday for bronchoscopy Discharge Plan: Home Plan to discharge in: Greater than 2 days - Advance Directives Does patient have a Living Will: No Does patient have a Durable POA for Healthcare: No - Code Status/Comfort Care Code Status: Full Code Critical Care: No Time Spent Managing PTS Care (In Minutes): 35
[2024-11-13] MEDS: POTASSIUM CL SA 10 MEQ TAB PO ONE ×2 (07:27→14:04)
--- NOTE | 2024-11-13 08:08 | RAD REPORT ---
Procedure: Chest Single View HISTORY: Cough COMPARISON: November 11, 2024 FINDINGS: Partial resolution in the right lung atelectasis No change in the right lung mass extending into the mediastinum. Elevation right hemidiaphragm persists.
--- NOTE | 2024-11-13 12:04 | EKG ---
Test Date: 2024-11-11 Test Time: 15:44:40 Fire Prevention Forester: JULIO CESAR MEASUREMENT RESULTS: Intervals: Rate: 94 OK: 130 QRSD: 88 QT: 402 QTc: 502 [place]: P: 69 OK: 130 QRS: 101 T: 72 INTERPRETIVE STATEMENTS: Normal sinus rhythm Biatrial enlargement Prolonged QT Abnormal ECG No previous ECG available for comparison Electronically Signed On 11-13-24 12:00:17 CDT by Jordan Horne
--- NOTE | 2024-11-13 12:26 | P.CNS ---
Date of Consult: 11/13/24 Reason for Consult: Right upper lobe lung mass Chief Complaint: Lung mass History of Present Illness: Patient is 59 years of age doing well until last Wednesday started coughing having some fever and chills dyspnea admitted to the hospital diagnosed with influenza has a very large right upper lobe lung mass with volume loss involvement of the phrenic nerve losing some weight loss of appetite history of COPD quit smoking a long time ago Allergies Penicillins Allergy (Verified 11/11/24 23:09) Unknown Home Medications: Escitalopram [Lexapro*] DAILY 11/11/24 cloNIDine HCL [Clonidine HCl] BID 11/11/24 - Past Medical/Surgical History Diabetic: No -: Depression -: Hot flashes - Family History Father Family History: Reviewed- Non-Contributory - Social History Alcohol use: No CD- Drugs: No Caffeine use: No Place of Residence: Home Review of Systems 10-point ROS is otherwise unremarkable General: Weakness Respiratory: Cough, Shortness of Breath Physical Examination Temp Pulse Resp BP Pulse Ox 98.0 F 79 20 123/61 94 11/13/24 12:00 11/13/24 12:00 11/13/24 12:00 11/13/24 12:00 11/13/24 12:00 General: Alert, Oriented x3 HEENT: Atraumatic Neck: Supple Respiratory: Diminished, Expiratory wheezes Cardiovascular: No edema, Regular rate/rhythm Gastrointestinal: Normal bowel sounds, Soft and benign - Problems (1) Lung cancer, upper lobe Current Visit: Yes Status: Acute Plan: Patient is 59 years of age admitted with cough shortness of breath for the past week diagnosed with influenza a very large right upper lobe mass mediastinal involvement volume loss certainly this is lung cancer most likely small cell lung cancer has been scheduled for bronchoscopy on Wednesday let her recover with steroids and breathing treatments for now cussed with the patient risk include bleeding infection lung collapse oncology consult patient is a former smoker Qualifiers: Laterality: right Qualified Code(s): C34.11 - Malignant neoplasm of upper lobe, right bronchus or lung
--- NOTE | 2024-11-13 13:27 | ECHO ---
HEIGHT: 5 ft 4 in WEIGHT: 164 lb 0 oz DATE OF STUDY: 11/13/[address]: Uli To MD 2-DIMENSIONAL: YES M.MODE: YES DOPPLER: YES COLOR FLOW: YES TDS: PORTABLE: YES DEFINITY: BUBBLE STUDY: DIAGNOSIS: DYSPNEA CARDIAC HISTORY: CATHERIZATION: NO SURGERY: NO PROSTHETIC VALVE: NO PACEMAKER: NO MEASUREMENTS (cm) DIASTOLIC (NORMALS) SYSTOLIC (NORMALS) IVSd 0.9 (0.6-1.2) LA Diam 2.7 (1.9-4.0) LVEF 60-65% LVIDd 4.1 (3.5-5.7) LVIDs 2.8 (2.0-3.5) %FS 32% LVPWd 1.1 (0.6-1.2) Ao Diam 2.6 (2.0-3.7) 2 DIMENSIONAL ASSESSMENT: RIGHT ATRIUM: NORMAL LEFT ATRIUM: NORMAL RIGHT VENTRICLE: NORMAL LEFT VENTRICLE: NORMAL TRICUSPID VALVE: TRACE TRICUSPID REGURGITATION MITRAL VALVE: NORMAL PULMONIC VALVE: NORMAL AORTIC VALVE: NORMAL PERICARDIAL EFFUSION: NONE AORTIC ROOT: NORMAL LEFT VENTRICULAR WALL MOTION: NORMAL DOPPLER/COLOR FLOW: NORMAL COMMENTS: 1. NORMAL LEFT VENTRICULAR SYSTOLIC FUNCTION, EJECTION FRACTION 60-65%, NORMAL WALL MOTION 2. NORMAL DIASTOLIC FUNCTION 3. MILD ELEVATED FILLING PRESSURE (RIGHT ATRIAL PRESSURE 5-10 mmHg) TECHNOLOGIST: JOSEFA LAND
[2024-11-13] MEDS: levoFLOXacin 750 MG TAB PO SCH (21:46)
--- NOTE | 2024-11-14 05:32 | P.PN ---
Date of Service: 11/13/24 Subjective Patient continues to improve. Patient denies any new complaints.Spoke with pulmonary and plan is to do bronchoscopy on Wednesday once patient's clinical symptoms continue to improve. Physical Examination - Vital Signs Reviewed - Physical Exam General: Alert, In no apparent distress, Oriented x3 Respiratory: Diminished, Expiratory wheezes Cardiovascular: Regular rate/rhythm, Normal S1 S2, No murmurs Gastrointestinal: Normal bowel sounds, Soft and benign, Non-distended, No tenderness Musculoskeletal: No clubbing, No swelling, No tenderness Neurological: Sensation intact, Cranial nerves 3-12 intact - Studies Medications List Reviewed: Yes Assessment & Plan - Problems (Diagnosis) (1) COPD with acute exacerbation Current Visit: Yes Status: Acute (2) Lung mass Current Visit: Yes Status: Acute - Plan 1. Patient with acute COPD with acute exacerbation; continue with current treatment with nebs, steroids, and antibiotics. O2 per protocol. Outpatient pulmonary function testing and appreciate pulmonary recommendation. Patient does have a large lung mass and patient is scheduled for bronchoscopy on Wednesday. Patient will be n.p.o. after midnight on Wednesday. 2. Depression; resume antidepressants 3. GI and DVT prophylaxis Discharge Plan: Home Plan to discharge in: Greater than 2 days - Advance Directives Does patient have a Living Will: No Does patient have a Durable POA for Healthcare: No - Code Status/Comfort Care Code Status: Full Code Critical Care: No Time Spent Managing PTS Care (In Minutes): 35
[2024-11-14] MEDS: METHYLPREDNISOLONE 125 MG INJ IV SCH (08:12)
[2024-11-14] MEDS: POTASSIUM CL SA 10 MEQ TAB PO ONE (09:36)
--- NOTE | 2024-11-14 14:59 | P.PN ---
Subjective Date of Service: 11/14/24 Chief Complaint: Lung mass Subjective: No chest pain. shortness of breath improving. No nausea or vomiting. No abdominal pain. No obvious bleeding. Looks comfortable in the bed. Objective: General appearance: Alert and comfortable CVS: Normal S1 and S2 Lungs: Clear to auscultation bilaterally Abdomen: Soft, bowel sounds present, no tenderness Extremities: No lower extremity edema Physical Examination - Vital Signs Temperature: 97.3 F Blood Pressure: 123/58 Pulse: 83 Respirations: 16 Pulse Ox (%): 92 - Studies Medications List Reviewed: Yes Assessment And Plan - Plan 1. acute COPD with acute exacerbation; continue with current treatment with nebs, steroids, and antibiotics. -Echo showed normal EF 60 to 65%. 1a. Influenza infection: Continue Tamiflu. 2. Right lung mass with mediastinal and hilar adenopathy: scheduled for bronchoscopy on Wednesday. 3. Depression; resume antidepressants 4. Hypokalemia: Replacing. 5. Cholelithiasis on CT scan: Incidental finding, follow-up with PCP. Plan discussed With the patient and nursing staff, all questions answered.
[2024-11-14] MEDS: OSELTAMIVIR 75 MG CAP PO SCH (20:57)
[2024-11-15 06:26] LABS: PT Prothrombin Time 13.6 SECONDS (10-13.0); PTT, Activated Partial Thromb 26.3 SECONDS (27.2-37.4); Protime INR 1.2
[2024-11-15 06:27] LABS: Absolute Lymphocytes (CBC) 0.7 K/uL (0.7-4.9); Absolute Monocytes 0.4 K/uL (0.1-1.3); Absolute Neutrophil 6.5 K/uL (1.8-8.0); Basophils % 0.2 % (0-1.3); Hematocrit 39.2 % (36.0-45.0); Hemoglobin 13.4 g/dL (12.0-15.0); Lymphocytes % 9.2 % (15.3-44.8); MCHC 34.2 g/dL (32.0-36.0); MCV 84.7 fL (80-100); MPV 8.4 fL (7.6-11.3); Monocytes % 5.2 % (3.3-12.3); Neutrophils % 85.4 % (41.7-73.7); Nucleated Red Blood Cells % 0.2 % (0-0); Platelets 216 thou/uL (152-406); RBC Red Blood Cell Count 4.63 M/uL (3.86-4.86); Red Cell Distribution Width 14.9 % (12.1-15.2)
[2024-11-15 06:33] LABS: Albumin 2.7 g/dL (3.4-5.0); Albumin/Globulin Ratio 0.7 (1.1-1.8); Anion Gap 9.6 mEq/L (5.0-15.0); Globulin 4.1 g/dL (2.3-3.5); Potassium 3.6 mEq/L (3.5-5.1); Protein, Total 6.8 g/dL (6.4-8.2)
[2024-11-15] MEDS ORDERED: FENTANYL CITR 100 MCG/2 ML ONE (06:47)
[2024-11-15] MEDS ORDERED: GLYCOPYRROLATE 0.2 MG/ML SYR ONE (06:47)
[2024-11-15] MEDS ORDERED: LIDOCAINE 1% MPF 5 ML VIAL ONE (06:47)
[2024-11-15] MEDS: LIDOCAINE 4% TOP SOLUTION ONE (06:48)
[2024-11-15] MEDS: Phenylephrine HCl 10 MG/ML 1 ML VIAL ONE (06:48)
[2024-11-15] MEDS ORDERED: propofoL 200 MG/20 ML VIAL IV ONE (06:48)
[2024-11-15] MEDS: NA CHLORIDE 0.9% 500 ML ONE (07:15)
[2024-11-15] MEDS ORDERED: LIDOCAINE 1% MPF 30 ML VIAL ONE (07:16)
[2024-11-15 08:55] LABS: Blood Morphology Comment NOT SEEN (NOT SEEN); Platelet Estimate ADEQ; White Blood Cell Scan OK (OK)
[2024-11-15] MEDS: ALBUTEROL 2.5 MG/3 ML NEB SOL NEB PRN (08:55)
[2024-11-15 10:19] LABS: Arterial Blood Carboxyhemoglob 1.3 % (0-1.5)
[2024-11-15 10:23] LABS: Blood Gas THB 13.8 g/dl (12-18)
--- NOTE | 2024-11-15 10:31 | RAD REPORT ---
EXAMINATION: ONE VIEW CHEST XR CLINICAL INDICATION: Dusky color TECHNIQUE: Frontal chest projection is submitted. Examination is limited by patient positioning and t echnique. COMPARISON: 11/13/2024 FINDINGS: Moderate airspace opacity right hemithorax and mild airspace opacity left midlung noted, progressive since prior study. Presumably this is related to infiltrate. The heart is upper limit of normal in size. No displaced fractures identified. IMPRESSION: Mild to moderate worsening lung aeration is seen since comparison study.
--- NOTE | 2024-11-15 12:51 | P.PN ---
Subjective Date of Service: 11/15/24 Chief Complaint: Lung mass Patient was scheduled for a bronchoscopy today but she was desatting the nonrebreather cyanotic the procedure was canceled Review of Systems is unable to be obtained Physical Examination - Vital Signs Temperature: 98.6 F Blood Pressure: 108/52 Pulse: 96 Respirations: 28 Pulse Ox (%): 96 - Physical Exam General: Moderate distress Respiratory: Diminished, Expiratory wheezes Cardiovascular: No edema, Regular rate/rhythm, Normal S1 S2 - Studies Medications List Reviewed: Yes Assessment And Plan - Current Problems (Diagnosis) (1) Lung cancer, upper lobe Current Visit: Yes Status: Acute Plan: Patient was scheduled for a bronchoscopy unfortunately patient has some significant desaturation episodes procedure was canceled she has a very large mediastinal mass most likely small cell cancer has not been stage will be transferred to a tertiary care center for to be done while she is intubated including an EBUS with the gnosis for advanced stage lung cancer Qualifiers: Laterality: right Qualified Code(s): C34.11 - Malignant neoplasm of upper lobe, right bronchus or lung
--- NOTE | 2024-11-15 14:28 | P.PN ---
Subjective Date of Service: 11/15/24 Chief Complaint: Lung mass Subjective: No chest pain. shortness of breath ongoing. No nausea or vomiting. No abdominal pain. No obvious bleeding. Looks comfortable in the bed. Objective: General appearance: Alert and comfortable CVS: Normal S1 and S2 Lungs: Clear to auscultation bilaterally Abdomen: Soft, bowel sounds present, no tenderness Extremities: No lower extremity edema Physical Examination - Vital Signs Temperature: 98.6 F Blood Pressure: 111/49 Pulse: 90 Respirations: 27 Pulse Ox (%): 93 - Studies Medications List Reviewed: Yes Assessment And Plan - Plan 1. acute COPD with acute exacerbation; continue with current treatment with nebs, steroids, and antibiotics. -Echo showed normal EF 60 to 65%. 1a. Influenza infection: Continue Tamiflu. 2. Right lung mass with mediastinal and hilar adenopathy: scheduled for bronchoscopy today but procedure cancelled due to hypoxia, paln to transfer to tertiary care hospital, waiting for acceptance. 3. Depression; resume antidepressants 4. Hypokalemia: Replaced. 5. Cholelithiasis on CT scan: Incidental finding, follow-up with PCP. Plan discussed With the patient and nursing staff, all questions answered.
[2024-11-15 21:55] VITALS: BP 102/65; TEMP 98.2
[2024-11-15 22:28] VITALS: O2SAT 94
--- NOTE | 2024-11-16 09:10 | P.DS ---
Admission Date: 11/11/24 Discharge Date: 11/15/24 Disposition: TRANSFER TO [facility] Discharge Condition: CRITICAL Reason for Admission: Lung mass Hospital Course: 1. COPD with acute exacerbation; current treatment with nebs, steroids, and antibiotics. -Echo showed normal EF 60 to 65%. 1a. Influenza infection: on Tamiflu. 2. Right lung mass with mediastinal and hilar adenopathy: scheduled for bronchoscopy today but procedure cancelled due to hypoxia, paln to transfer to tertiary care hospital, waiting for acceptance. 3. Depression; resume antidepressants 4. Hypokalemia: Replaced. 5. Cholelithiasis on CT scan: Incidental finding, follow-up with PCP. 59-year-old patient admitted with acute COPD exacerbation, she was started on nebs, steroids and antibiotics, she was also found to have a influenza infection, she was started on Tamiflu, she was also found to have right lung mass with mediastinal and hilar lymphadenopathy, pulmonary was following, she was scheduled for bronchoscopy on 11/15/2024, at the time of procedure she had significant hypoxia, procedure was terminated, pulmonology recommended to transfer the patient to higher level of care facility where they can do EBUS and close monitoring, transfer process was initiated, patient was accepted at nighttime on 11/15/2024, patient was transferred to [facility]. Vital Signs/Physical Exam: Temp Pulse Resp BP Pulse Ox 98.2 F 88 24 H 102/65 93 11/15/24 20:00 11/15/24 22:00 11/15/24 22:00 11/15/24 21:00 11/15/24 22:00 Laboratory Data at Discharge: WBC 7.60 thou/uL (4.3-10.9) 11/15/24 05:46 Hgb 13.4 g/dL (12.0-15.0) 11/15/24 05:46 Hct 39.2 % (36.0-45.0) 11/15/24 05:46 Plt Count 216 thou/uL (152-406) 11/15/24 05:46 PT 13.6 SECONDS (10-13.0) H 11/15/24 05:46 INR 1.20 11/15/24 05:46 APTT 26.3 SECONDS (27.2-37.4) L 11/15/24 05:46 Sodium 133 mEq/L (136-145) L 11/15/24 05:46 Potassium 3.6 mEq/L (3.5-5.1) 11/15/24 05:46 BUN 5 mg/dL (7-18) L 11/15/24 05:46 Creatinine 0.56 mg/dL (0.55-1.02) 11/15/24 05:46 Glucose 166 mg/dL (74-106) H 11/15/24 05:46 Magnesium 2.0 mg/dL (1.6-2.4) 11/15/24 05:46 Total Bilirubin 1.0 mg/dL (0.2-1.0) 11/15/24 05:46 AST 92 U/L (15-37) H 11/15/24 05:46 ALT 85 U/L (13-56) H 11/15/24 05:46 Alkaline Phosphatase 99 U/L (45-117) 11/15/24 05:46 Triglycerides 119 mg/dL (<150) 11/12/24 06:11 Cholesterol 188 mg/dL (<200) 11/12/24 06:11 HDL Cholesterol 41 mg/dL (40-60) 11/12/24 06:11 Cholesterol/HDL Ratio 4.59 11/12/24 06:11 Home Medications: Escitalopram [Lexapro*] 20 mg PO DAILY 11/11/24 cloNIDine HCL [Clonidine HCl] 0.1 mg PO BID 11/11/24 Followup: NONE,NONE [Primary Care Provider] -
== END 2024-11-15 22:15 | disposition short-term general hospital (02) | DRG 193 ==
LOC: ER 12:41 → ERHOLD 17:03 → 2ND 17:57 → 3RD-ICU 11-15 11:38
PROVIDERS: ADMIT Hospitalist; ATTEND Hospitalist
PROC: 4A033R1 Measurement of Arterial Saturation, Peripheral, Percutaneous Approach (ICD-10-PCS; principal; 2024-11-15)
PROC: 5A09357 Assistance with Respiratory Ventilation, Less than 24 Consecutive Hours, Continuous Positive Airway Pressure (ICD-10-PCS; 2024-11-15)
DX: J10.00 Influenza due to other identified influenza virus with unspecified type of pneumonia (principal); J96.01 Acute respiratory failure with hypoxia; J44.1 Chronic obstructive pulmonary disease with (acute) exacerbation; J44.0 Chronic obstructive pulmonary disease with (acute) lower respiratory infection; J98.4 Other disorders of lung; F32.A Depression, unspecified; E87.6 Hypokalemia; K80.20 Calculus of gallbladder without cholecystitis without obstruction; R59.9 Enlarged lymph nodes, unspecified; Z88.0 Allergy status to penicillin; Z11.52 Encounter for screening for COVID-19; Z79.899 Other long term (current) drug therapy; Z86.711 Personal history of pulmonary embolism; Z86.718 Personal history of other venous thrombosis and embolism; Z87.891 Personal history of nicotine dependence
CPT/HCPCS: 36415; 36600; 71045; 71250; 80048; 80053; 80061; 80076; 82805; 83735; 83880; 84132; 84484; 85025; 85610; 85730; 86140; 87070; 87428; 93005; 93306; 94640; 94660; 94760; 96365; 96366; 99285; J0692; J1650; J2003; J2371; J2704; J2919; J3010; J7030; J7040; J7613; J7644